=== PATIENT | male | born 1950 | race Caucasian/White ===

== ENCOUNTER → 2016-10-26 | Outpatient (REF) | payer OTHER | LOC: M LABDRAWC 11:27 | PROVIDERS: ATTEND Urology | DX: Z12.5 Encounter for screening for malignant neoplasm of prostate (principal) ==

== ENCOUNTER → 2016-12-27 | Outpatient (REF) | payer OTHER | LOC: M LABDRAWC 11:54 | PROVIDERS: ATTEND Internal Medicine Cardiovascular Disease | DX: E78.00 Pure hypercholesterolemia, unspecified (principal) ==

== ENCOUNTER → 2017-01-24 | Outpatient (REF) | payer OTHER ==
[2017-01-24 11:55] LABS: MEAN CORPUSCULAR HEMOGLOBIN 31.5 pg (27.0-33.0); MEAN CORPUSCULAR HGB CONC 33.9 g/dl (32.0-36.5); MEAN CORPUSCULAR VOLUME 92.8 fl (80.0-96.0); WHITE BLOOD COUNT 3.8 K/mm3 (4.0-10.0)
[2017-01-24 12:22] LABS: ALBUMIN 3.9 GM/DL (3.2-5.2); ALBUMIN/GLOBULIN RATIO 1.44 (1.00-1.93); ALKALINE PHOSPHATASE 79 U/L (45-117); ALT/SGPT 27 U/L (12-78); ANION GAP 9 MEQ/L (8-16); AST/SGOT 18 U/L (15-37); BILIRUBIN,TOTAL 0.6 MG/DL (0.2-1.0); BLOOD UREA NITROGEN 23 MG/DL (7-18); CALCIUM LEVEL 8.6 MG/DL (8.8-10.2); CARBON DIOXIDE LEVEL 27 MEQ/L (21-32); CHLORIDE LEVEL 108 MEQ/L (98-107); CHOLESTEROL LEVEL 149 MG/DL (<200); CREATININE FOR GFR 0.91 MG/DL (0.70-1.30); GLOMERULAR FILTRATION RATE > 60.0 (>49); GLUCOSE, FASTING 102 MG/DL (80-110); POTASSIUM SERUM 4.5 MEQ/L (3.5-5.1); SODIUM LEVEL 144 MEQ/L (136-145); TOTAL PROTEIN 6.6 GM/DL (6.4-8.2); TRIGLYCERIDES LEVEL 76 MG/DL (<150)
== END ==
LOC: M SFHCCLAY 07:47
PROVIDERS: ATTEND Internal Medicine
DX: G47.30 Sleep apnea, unspecified (principal); I25.10 Atherosclerotic heart disease of native coronary artery without angina pectoris; E78.00 Pure hypercholesterolemia, unspecified

== ENCOUNTER → 2018-01-27 | Outpatient (REF) | payer MEDICARE, OTHER ==
[2018-01-27 12:27] LABS: ALT/SGPT 29 U/L (12-78); AST/SGOT 21 U/L (7-37); CHOLESTEROL LEVEL 131 MG/DL (<200); CHOLESTEROL RISK RATIO 2.729 (<5); CPK CREATINE PHOSPHOKINASE 122 U/L (39-308); HDL CHOLESTEROL 48 MG/DL (>40); LDL CHOLESTEROL 69 MG/DL (<100); NON-HDL-C 83 MG/DL; TRIGLYCERIDES LEVEL 71 MG/DL (<150)
== END ==
LOC: M LABDRAWC 11:19
DX: E78.00 Pure hypercholesterolemia, unspecified (principal)
CPT/HCPCS: 84460

== ENCOUNTER → 2018-12-20 | Outpatient (REF) | payer MEDICARE, OTHER | LOC: M LABDRAWC 16:44 | PROVIDERS: ATTEND Physician Assistant | DX: N40.1 Benign prostatic hyperplasia with lower urinary tract symptoms (principal) ==

== ENCOUNTER → 2019-01-26 | Outpatient (REF) | payer MEDICARE, OTHER ==
[2019-01-26 12:34] LABS: CHOLESTEROL RISK RATIO 3.074 (<5)
== END ==
LOC: M LABDRAWC 11:23
PROVIDERS: ATTEND Internal Medicine Cardiovascular Disease
DX: I25.119 Atherosclerotic heart disease of native coronary artery with unspecified angina pectoris (principal)

== ENCOUNTER → 2019-12-25 | Outpatient (REF) | payer MEDICARE, OTHER | LOC: M LABDRAWC 09:36 | PROVIDERS: ATTEND Physician Assistant | DX: N40.1 Benign prostatic hyperplasia with lower urinary tract symptoms (principal) ==

== ENCOUNTER → 2020-01-29 | Outpatient (REF) | payer MEDICARE, OTHER ==
[2020-01-29 12:14] LABS: CHOLESTEROL RISK RATIO 2.877 (<5)
== END ==
LOC: M LABDRAWC 11:28
PROVIDERS: ATTEND Nurse Practitioner Adult Health
DX: I25.10 Atherosclerotic heart disease of native coronary artery without angina pectoris (principal); E78.2 Mixed hyperlipidemia

== ENCOUNTER → 2020-12-16 | Outpatient (REF) | payer MEDICARE, OTHER | LOC: M LABDRAWC 11:13 | PROVIDERS: ATTEND Physician Assistant | DX: N40.1 Benign prostatic hyperplasia with lower urinary tract symptoms (principal) ==

== ENCOUNTER → 2021-01-23 | Outpatient (REF) | payer MEDICARE, OTHER ==
[2021-01-23 12:22] LABS: CHOLESTEROL RISK RATIO 2.724 (<5)
== END ==
LOC: M LABDRAWC 11:23
PROVIDERS: ATTEND Nurse Practitioner
DX: I25.10 Atherosclerotic heart disease of native coronary artery without angina pectoris (principal)

== ENCOUNTER → 2022-02-02 | Outpatient (REF) | payer MEDICARE, OTHER | LOC: M LABDRAWC 11:03 | PROVIDERS: ATTEND Physician Assistant | DX: N40.1 Benign prostatic hyperplasia with lower urinary tract symptoms (principal) ==

== ENCOUNTER → 2022-02-02 | Outpatient (REF) | payer MEDICARE, OTHER ==
[2022-02-02 12:36] LABS: CHOLESTEROL RISK RATIO 2.701 (<5)
== END ==
LOC: M LABDRAWC 11:05
PROVIDERS: ATTEND Internal Medicine Cardiovascular Disease
DX: E78.2 Mixed hyperlipidemia (principal); Z71.3 Dietary counseling and surveillance

== ENCOUNTER → 2022-11-25 | Outpatient (REF) | payer MEDICARE, OTHER ==
[2022-11-25 12:29] LABS: CHOLESTEROL RISK RATIO 3.05 (<5); HDL CHOLESTEROL 49.4 MG/DL (>40); LDL CHOLESTEROL 90.4 MG/DL (<100); NON-HDL-C 101.6 MG/DL
== END ==
LOC: M LABDRAWC 11:18
PROVIDERS: ATTEND Internal Medicine Cardiovascular Disease
DX: E78.2 Mixed hyperlipidemia (principal)

== ENCOUNTER → 2023-11-01 | Outpatient (REF) | payer MEDICARE, OTHER | LOC: M LABDRAWC 11:46 | PROVIDERS: ATTEND Urology | DX: Z12.5 Encounter for screening for malignant neoplasm of prostate (principal); N40.1 Benign prostatic hyperplasia with lower urinary tract symptoms ==

== ENCOUNTER → 2023-12-15 | Outpatient (REF) | payer MEDICARE, OTHER ==
[2023-12-15 13:01] LABS: CHOLESTEROL RISK RATIO 3.29 (<5); HDL CHOLESTEROL 32.5 MG/DL (>40); LDL CHOLESTEROL 64.1 MG/DL (<100); NON-HDL-C 74.5 MG/DL
== END ==
LOC: M LABDRAWC 11:45
PROVIDERS: ATTEND Internal Medicine Cardiovascular Disease
DX: E78.00 Pure hypercholesterolemia, unspecified (principal)

== ENCOUNTER → 2024-12-25 | Outpatient (CLI) | payer MEDICARE, BC ==
[~2024-12-25] MED LIST: E-Z-PAQUE 96% w/w SUSP 176 GM BTL As Ordered ONE
== END ==
LOC: M RAD 08:17
PROVIDERS: ATTEND Internal Medicine Gastroenterology
DX: R41.3 Other amnesia (principal); K59.00 Constipation, unspecified

== ENCOUNTER → 2025-01-10 | Outpatient (REF) | payer MEDICARE, BC ==
[2025-01-10 14:14] LABS: ALT/SGPT 37.0 U/L (7.0-40); AST/SGOT 30.0 U/L (<34); CHOLESTEROL LEVEL 122.0 MG/DL (<200); CHOLESTEROL RISK RATIO 2.2 (<5); LDL CHOLESTEROL 48.8 MG/DL (<100); NON-HDL-C 66.6 MG/DL; TRIGLYCERIDES LEVEL 89.0 MG/DL (<150)
[2025-01-10 14:24] LABS: CPK CREATINE PHOSPHOKINASE 121.0 U/L (46-171)
== END ==
LOC: M LABDRAWC 12:24
PROVIDERS: ATTEND Internal Medicine Cardiovascular Disease
DX: E78.2 Mixed hyperlipidemia (principal)

== ENCOUNTER → 2025-02-11 | Outpatient (REF) | payer MEDICARE, BC ==
[2025-02-13 16:57] LABS: ALMOND IGE FOOD < 0.10 kU/L (<0.10); BRAZIL NUT CLASS IGE <0.10 ABSENT (<0.10); BRAZIL NUT IGE < 0.10 kU/L (<0.10); CASHEW NUT IGE FOOD < 0.10 kU/L (<0.10); CODFISH IGE FOOD < 0.10 kU/L (<0.10); COWS MILK FOOD < 0.10 kU/L (<0.10); EGG WHITE FOOD < 0.1 kU/L (<0.10); HAZELNUT IGE FOOD < 0.10 kU/L (<0.10); MACADAMIA NUT CLASS IGE <0.10 ABSENT (<0.10); PEANUT IGE FOOD < 0.10 kU/L (<0.10); SALMON IGE FOOD < 0.10 kU/L (<0.10); SCALLOP IGE FOOD < 0.10 kU/L (<0.10); SESAME SEED IGE FOOD < 0.10 kU/L (<0.10); SHRIMP IGE FOOD < 0.10 kU/L (<0.10); SOYBEAN IGE FOOD < 0.10 kU/L (<0.10); TUNA IGE FOOD < 0.10 kU/L (<0.10); WALNUT IGE FOOD < 0.10 kU/L (<0.10); WHEAT IGE FOOD < 0.10 kU/L (<0.10)
== END ==
LOC: M LABDRAWC 11:58
PROVIDERS: ATTEND Internal Medicine Gastroenterology
DX: K57.30 Diverticulosis of large intestine without perforation or abscess without bleeding (principal); R19.4 Change in bowel habit; R14.3 Flatulence; K59.00 Constipation, unspecified; J30.9 Allergic rhinitis, unspecified